=== PATIENT | male | born 1975 | race Caucasian/White ===

== ENCOUNTER 2017-02-03 22:33 | Emergency (ER) | END 2017-02-04 00:50 | disposition home or self-care (01) | DX: H66.92 Otitis media, unspecified, left ear (principal); F17.210 Nicotine dependence, cigarettes, uncomplicated | CPT/HCPCS: Z7502; Z7610 ==

== ENCOUNTER 2018-08-07 06:27 | Emergency (ER) | payer OTHER ==
[~2018-08-07] VITALS: Ht 175.3 cm; Wt 84.3 kg
[~2018-08-07 06:27] MED LIST: AMOX1TAB10 PO; CARB15DR50 LEFT EAR; DICL50TA11 PO; DOCU-144 PO; HYDR-3498 PO; IBUP-1542 PO; PSEU120T12 PO
[2018-08-07 06:33] VITALS: BP 126/65; PULSE 70; RESP 16; Ht 175.3 cm; Wt 84.3 kg
[2018-08-07] MEDS ORDERED: IBUP-1542 PO (07:56)
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
== END 2018-08-07 08:13 | disposition home or self-care (01) ==
LOC: FTE 06:27
DX: S69.91XA Unspecified injury of right wrist, hand and finger(s), initial encounter (principal); V89.2XXA Person injured in unspecified motor-vehicle accident, traffic, initial encounter; Z87.891 Personal history of nicotine dependence
CPT/HCPCS: 73130; Z7502